=== PATIENT | male | born 1955 | race Caucasian/White ===

== ENCOUNTER → 2021-10-05 | Outpatient (CLI) | payer OTHER ==
[~2021-10-05] MED LIST: SERT50TA29 PO
== END ==
LOC: M LABSMTC 11:00
PROVIDERS: ATTEND Anesthesiology
DX: Z01.812 Encounter for preprocedural laboratory examination (principal); Z11.52 Encounter for screening for COVID-19

== ENCOUNTER 2021-10-09 08:25 | Day surgery (SDC) | payer BC, OTHER ==
[~2021-10-09] VITALS: Ht 172.7 cm; Wt 82.6 kg
[~2021-10-09 08:25] MED LIST changes: +LR 1,000 ML IV ONE
[2021-10-09] MEDS ORDERED: LIDOCAINE W/EPINEPHRINE 1% 20ML VIAL As Ordered ONE (09:23)
[2021-10-09] MEDS ORDERED: BUPIVACAINE HCL 0.25% 10ML VIAL As Ordered ONE (09:23)
[2021-10-09] MEDS ORDERED: propofoL 200 MG/20 ML VIAL As Ordered ONE (09:49)
[2021-10-09] MEDS ORDERED: MIDAZOLAM INJ 2MG/2ML VIAL (J2250 PER 1MG) As Ordered ONE (09:49)
[2021-10-09] MEDS ORDERED: LIDOCAINE 2% 100MG/5ML SDV (FOR ANES.) As Ordered ONE (09:49)
[2021-10-09] MEDS ORDERED: KETOROLAC 60MG 2ML VIAL As Ordered ONE (09:49)
[2021-10-09] MEDS ORDERED: fentaNYL 100 MCG/2 ML INJECTION As Ordered ONE (09:49)
[2021-10-09] MEDS ORDERED: ceFAZolin 1GM VIAL (J0690 PER 500MG) As Ordered ONE (09:58)
[2021-10-09] MEDS ORDERED: ceFAZolin SOD 1 GM in D5W MINI-BAG PLUS 50 ML IV ONE (10:15)
[2021-10-09 12:50] VITALS: BP 129/75
== END 2021-10-09 12:50 | disposition home or self-care (01) ==
LOC: M SDC 08:25
PROVIDERS: ATTEND Surgery
DX: D17.1 Benign lipomatous neoplasm of skin and subcutaneous tissue of trunk (principal); K21.9 Gastro-esophageal reflux disease without esophagitis; Z79.899 Other long term (current) drug therapy
CPT/HCPCS: 11406; 88304; 93005; J0690; J1885; J2250; J3010

== ENCOUNTER → 2022-08-26 | Outpatient (CLI) | payer BC, OTHER ==
[~2022-08-26] MED LIST changes: -LR 1,000 ML IV ONE
== END ==
LOC: M SOG 08:33
PROVIDERS: ATTEND Physician Assistant
DX: M19.041 Primary osteoarthritis, right hand (principal); M19.042 Primary osteoarthritis, left hand; M72.0 Palmar fascial fibromatosis [Dupuytren]

== ENCOUNTER → 2022-08-31 | Outpatient (CLI) | payer BC, OTHER ==
[~2022-08-31] MED LIST changes: +PRIL20TA2 PO
== END ==
LOC: M LABSMTC 11:18
PROVIDERS: ATTEND Anesthesiology
DX: Z01.812 Encounter for preprocedural laboratory examination (principal); Z20.822 Contact with and (suspected) exposure to COVID-19

== ENCOUNTER 2022-09-03 06:20 | Day surgery (SDC) | payer BC, OTHER ==
[~2022-09-03] VITALS: Ht 172.7 cm; Wt 82.1 kg
[~2022-09-03 06:20] MED LIST changes: +LIDOCAINE W/EPINEPHRINE 1% 20ML VIAL XX ONE; +SODIUM BICARBONATE 8.4% INJ 50MEQ 50ML VIAL XX ONE
[2022-09-03] MEDS ORDERED: BACITRACIN OINTMENT 30GM TUBE As Ordered ONE (07:08)
[2022-09-03] MEDS ORDERED: BUPIVACAINE HCL 0.25% 30ML VIAL As Ordered ONE (07:08)
[2022-09-03 08:03] VITALS: BP 147/84
== END 2022-09-03 08:12 | disposition home or self-care (01) ==
LOC: M SDC 06:20
PROVIDERS: ATTEND Orthopaedic Surgery Hand Surgery
DX: M72.0 Palmar fascial fibromatosis [Dupuytren] (principal); F34.1 Dysthymic disorder; K21.9 Gastro-esophageal reflux disease without esophagitis; Z79.899 Other long term (current) drug therapy

== ENCOUNTER → 2023-08-18 | Outpatient (CLI) | payer BC, OTHER ==
[~2023-08-18] MED LIST changes: -LIDOCAINE W/EPINEPHRINE 1% 20ML VIAL XX ONE; -SODIUM BICARBONATE 8.4% INJ 50MEQ 50ML VIAL XX ONE
[2023-08-18 10:09] LABS: BASO # 0.1 10^3/uL (0.0-0.2); BASO % 0.9 % (0.0-1.0); EOS # 0.4 10^3/uL (0.0-0.5); EOS % 5.1 % (0.0-3.0); HEMATOCRIT 46.1 % (42.0-52.0); HEMOGLOBIN 15.8 g/dl (13.5-17.5); LYMPH # 2.2 10^3/uL (1.5-5.0); LYMPH % 25.8 % (24.0-44.0); MEAN CORPUSCULAR HEMOGLOBIN 29.7 pg (27.0-33.0); MEAN CORPUSCULAR HGB CONC 34.3 g/dl (32.0-36.5); MEAN CORPUSCULAR VOLUME 86.7 fl (80.0-96.0); MONO # 0.8 10^3/uL (0.0-0.8); MONO % 9.6 % (2.0-8.0); NEUTROPHILS % 58.1 % (36.0-66.0); PLATELET COUNT, AUTOMATED 264 10^3/uL (150-450); RED BLOOD COUNT 5.32 10^6/uL (4.30-6.10); WHITE BLOOD COUNT 8.6 10^3/uL (4.0-10.0)
[2023-08-18 10:40] LABS: ALBUMIN 4.1 G/DL (3.2-5.2); ALKALINE PHOSPHATASE 81 U/L (46-116); ALT/SGPT 38 U/L (7.0-40); AST/SGOT 27 U/L (<34); BILIRUBIN,TOTAL 0.9 MG/DL (0.3-1.2); BLOOD UREA NITROGEN 12 MG/DL (9-23); CALCIUM LEVEL 9.8 MG/DL (8.3-10.6); CARBON DIOXIDE LEVEL 31 MMOL/L (20-31); CHLORIDE LEVEL 101 MMOL/L (98-107); CHOLESTEROL LEVEL 213 MG/DL (<200); CHOLESTEROL RISK RATIO 5.74 (<5); CREATININE FOR GFR 0.93 MG/DL (0.70-1.30); GLOMERULAR FILTRATION RATE > 60.0 (>49); GLUCOSE, FASTING 129 MG/DL (74-106); HDL CHOLESTEROL 37.1 MG/DL (>40); LDL CHOLESTEROL 143.1 MG/DL (<100); NON-HDL-C 175.9 MG/DL; POTASSIUM SERUM 4.4 MMOL/L (3.5-5.1); SODIUM LEVEL 139 MMOL/L (136-145); TOTAL PROTEIN 6.8 G/DL (5.7-8.2); TRIGLYCERIDES LEVEL 164 MG/DL (<150)
[2023-08-18 10:42] LABS: FREE T4 1.03 NG/DL (0.89-1.76); HEMOGLOBIN A1c 6.4 % (4.0-6.0); THYROID STIMULATING HORMONE 1.676 uIU/ML (0.55-4.78)
== END ==
LOC: M PLALAB 07:02
PROVIDERS: ATTEND Physician Assistant
DX: Z01.89 Encounter for other specified special examinations (principal); Z13.1 Encounter for screening for diabetes mellitus; Z13.220 Encounter for screening for lipoid disorders; R63.5 Abnormal weight gain; Z13.29 Encounter for screening for other suspected endocrine disorder; Z12.5 Encounter for screening for malignant neoplasm of prostate
CPT/HCPCS: 36415; 80053; 80061; 83036; 84439; 84443; 85025; G0103

== ENCOUNTER → 2023-11-11 | Outpatient (CLI) | payer BC ==
[2023-11-11 12:47] LABS: HEMOGLOBIN A1c 5.4 % (4.0-6.0)
[2023-11-11 13:07] LABS: ALBUMIN 4.3 G/DL (3.2-5.2); ALKALINE PHOSPHATASE 80 U/L (46-116); ALT/SGPT 26 U/L (7.0-40); AST/SGOT 23 U/L (<34); BILIRUBIN,TOTAL 1.3 MG/DL (0.3-1.2); BLOOD UREA NITROGEN 9 MG/DL (9-23); CALCIUM LEVEL 9.8 MG/DL (8.3-10.6); CARBON DIOXIDE LEVEL 28 MMOL/L (20-31); CHLORIDE LEVEL 98 MMOL/L (98-107); CHOLESTEROL LEVEL 83 MG/DL (<200); CHOLESTEROL RISK RATIO 2.37 (<5); CREATININE FOR GFR 0.83 MG/DL (0.70-1.30); CREATININE, URINE 193.4 MG/DL; GLOMERULAR FILTRATION RATE > 60.0 (>49); GLUCOSE, FASTING 78 MG/DL (74-106); HDL CHOLESTEROL 34.9 MG/DL (>40); LDL CHOLESTEROL 36.3 MG/DL (<100); NON-HDL-C 48.1 MG/DL; POTASSIUM SERUM 4.9 MMOL/L (3.5-5.1); SODIUM LEVEL 131 MMOL/L (136-145); TOTAL PROTEIN 6.6 G/DL (5.7-8.2); TRIGLYCERIDES LEVEL 59 MG/DL (<150)
[2023-11-11 13:08] LABS: MALB URINE SIEMENS < 3.0 MG/L; MAU/CREAT RATIO 1.5 MCG/MG (0.0-30.0)
== END ==
LOC: M PLALAB 08:39
PROVIDERS: ATTEND Physician Assistant
DX: E11.9 Type 2 diabetes mellitus without complications (principal); E78.2 Mixed hyperlipidemia

== ENCOUNTER 2024-07-24 10:56 | Day surgery (SDC) | payer BC ==
[~2024-07-24] VITALS: Ht 170.2 cm; Wt 73.0 kg
[~2024-07-24 10:56] MED LIST changes: +ROSU10TA61 PO; +SEMA1PEN2 SC
[2024-07-24] MEDS ORDERED: DEXTROSE 50% 50ML SYRINGE IV PRN (11:20)
[2024-07-24] MEDS ORDERED: INSULIN LISPRO (NovoLOG) PER UNIT SC PRN (11:20)
[2024-07-24] MEDS ORDERED: GLUCOSE 4 GM CHEW PO PRN (11:20)
[2024-07-24] MEDS ORDERED: GLUCAGON INJ 1MG VIAL SC PRN (11:20)
[2024-07-24] MEDS ORDERED: propofoL 200 MG/20 ML VIAL As Ordered ONE (11:36)
[2024-07-24] MEDS ORDERED: LIDOCAINE 2% 100MG/5ML SDV (FOR ANES.) As Ordered ONE (11:37)
[2024-07-24 11:57] LABS: BLOOD UREA NITROGEN 13 MG/DL (9-23); CALCIUM LEVEL 9.9 MG/DL (8.3-10.6); CARBON DIOXIDE LEVEL 31 MMOL/L (20-31); CHLORIDE LEVEL 105 MMOL/L (98-107); CREATININE FOR GFR 0.85 MG/DL (0.70-1.30); GLOMERULAR FILTRATION RATE > 60.0 (>49); GLUCOSE, FASTING 110 MG/DL (74-106); POTASSIUM SERUM 4.8 MMOL/L (3.5-5.1); SODIUM LEVEL 140 MMOL/L (136-145)
[2024-07-24] MEDS ORDERED: ACETAMINOPHEN 1000MG/100ML IV BAG As Ordered ONE (12:32)
[2024-07-24] MEDS ORDERED: ONDANSETRON 4MG 2ML VIAL As Ordered ONE (12:32)
[2024-07-24] MEDS ORDERED: ROCURONIUM BROMIDE 50MG/5ML VIAL As Ordered ONE (12:32)
[2024-07-24] MEDS ORDERED: SUGAMMADEX SODIUM 500 MG/5 ML VIAL (BRIDION) As Ordered ONE (12:32)
[2024-07-24] MEDS ORDERED: fentaNYL 100 MCG/2 ML INJECTION As Ordered ONE (12:33)
[2024-07-24] MEDS ORDERED: MIDAZOLAM INJ 2MG/2ML VIAL As Ordered ONE (12:52)
[2024-07-24] MEDS: ceFAZolin SOD 2 GM in IV 1 EA IV ONE (12:55)
[2024-07-24] MEDS ORDERED: MEPERIDINE 25 MG/ML 1ML VIAL IV PRN (14:10)
[2024-07-24] MEDS ORDERED: fentaNYL 100 MCG/2 ML INJECTION IV PRN (14:10)
[2024-07-24] MEDS ORDERED: diphenhydrAMINE 50MG/ML VIAL IV PRN (14:10)
[2024-07-24] MEDS: METOCLOPRAMIDE INJ 10MG/2ML VIAL IV PRN (14:37)
[2024-07-24] MEDS: ONDANSETRON 4MG 2ML VIAL IV PRN (14:37)
[2024-07-24] MEDS: oxyCODONE 5MG TAB PO PRN (14:38)
[2024-07-24] MEDS: HYDROMORPHONE HCL 0.5 MG/ 0.5 ML SYRINGE IV PRN (14:39)
[2024-07-24] MEDS: KETOROLAC 30 MG/ML 1ML VIAL IV ONE (14:44)
[2024-07-24 15:25] VITALS: BP 134/76; TEMP 97.4; O2SAT 95
== END 2024-07-24 15:55 | disposition home or self-care (01) ==
LOC: M SDC 10:56
PROVIDERS: ATTEND Surgery
DX: K40.90 Unilateral inguinal hernia, without obstruction or gangrene, not specified as recurrent (principal); E11.9 Type 2 diabetes mellitus without complications; Z79.899 Other long term (current) drug therapy
CPT/HCPCS: 36415; 49650; 80048; 93005; C1781; J0131; J0665; J0690; J1100; J1171; J1885; J2250; J2405; J2765; J3010; S2900

== ENCOUNTER → 2025-08-26 | Outpatient (CLI) | payer BC ==
[~2025-08-26] MED LIST changes: -ROSU10TA61 PO; +ROSU10TA90 PO
[2025-08-26 10:03] LABS: PSA SCREENING 0.6 NG/ML (< 4.00)
[2025-08-26 10:10] LABS: ESTIMATED AVERAGE GLUCOSE 108.0 MG/DL (60-110)
[2025-08-26 10:44] LABS: ALT/SGPT 35.0 U/L (7.0-40); AST/SGOT 31.0 U/L (<34); CALCIUM LEVEL 9.7 MG/DL (8.3-10.6); CARBON DIOXIDE LEVEL 31.0 MMOL/L (20-31); CHLORIDE LEVEL 101.0 MMOL/L (98-107); CHOLESTEROL LEVEL 120.0 MG/DL (<200); CHOLESTEROL RISK RATIO 2.55 (<5); CREATININE FOR GFR 0.95 MG/DL (0.70-1.30); FREE T4 1.08 NG/DL (0.89-1.76); GLOMERULAR FILTRATION RATE 86.1 (>42); LDL CHOLESTEROL 60.9 MG/DL (<100); NON-HDL-C 73.1 MG/DL; POTASSIUM SERUM 4.1 MMOL/L (3.5-5.1); SODIUM LEVEL 141.0 MMOL/L (136-145); TRIGLYCERIDES LEVEL 61.0 MG/DL (<150)
== END ==
LOC: M PLALAB 07:29
DX: E11.9 Type 2 diabetes mellitus without complications (principal); E78.2 Mixed hyperlipidemia; Z13.29 Encounter for screening for other suspected endocrine disorder; Z12.5 Encounter for screening for malignant neoplasm of prostate
CPT/HCPCS: 36415; 80053; 80061; 83036; 84439; 84443; G0103